=== PATIENT | female | born 1955 | race Caucasian/White ===

== ENCOUNTER → 2023-12-29 | Outpatient (CLI) | payer MEDICARE ==
--- NOTE | 2023-12-29 16:37 | MR ---
EXAMINATION TYPE: MR brain wo/w con DATE OF EXAM: 12/29/2023 4:14 PM CLINICAL INDICATION:Female, 68 years old with history of I63.9 CEREBRAL INFARCTION, UNSPECIFIED, [facility] kady for stroke. COMPARISON: None TECHNIQUE: Multi planar, multi sequence imaging was performed through the brain including: T1, T2, In version recovery, susceptibility weighted imaging and gradient echo imaging and Diffusion weighted im aging. The patient was then given intravenous contrast and multi planar, T1 fat-saturation images wer e obtained. IV Contrast: 9 cc Gadavist FINDINGS: Restricted diffusion within the left is a ganglion extending into the greco radiata and ne priscilla the centrum semiovale in the left frontal lobe. The rae-white junctions, ventricular system, ba iman cisterns appear unremarkable. Intracranial arterial flow voids are maintained. Midline structur es show no abnormality. Scattered foci of high T2 signal intensity are seen within the periventricula r white matter. Additional remote injury within the gautam slightly left of midline noted. The suscepti bility weighted images do not reveal any evidence for micro-hemorrhage. After administration of gadol inium, no abnormal enhancement is seen. The bone marrow signal is within normal limits. Paranasal sinuses and mastoid air cells: No significant paranasal sinus disease. Visualized orbits: Orbital contents are intact. IMPRESSION: 1. Acute/subacute CVA involving the left basal ganglia with extension to greco radiata and nearly th e centrum semiovale of the left frontal lobe. 2. Nonspecific white matter changes, likely related to small vessel ischemic disease.
== END | disposition home or self-care (01) ==
LOC: RADMRIMAIN 15:02
PROVIDERS: ATTEND Internal Medicine Geriatric Medicine
DX: G93.89 Other specified disorders of brain (principal); I63.9 Cerebral infarction, unspecified
CPT/HCPCS: 70553; A9585

== ENCOUNTER → 2024-07-08 | Outpatient (CLI) | payer MEDICARE ==
--- NOTE | 2024-07-08 16:21 | BD ---
EXAMINATION TYPE: Axial Bone Density DATE OF EXAM: 07/08/2024 CLINICAL HISTORY: 68 years old Female. ICD-10 CODE: M85.9 DISORDER OF BONE , Additional History: Height: 64.5 Weight: 198.8 FRAX RISK QUESTIONS: Alcohol (3 or more units per day): no Family History (Parent hip fracture): no Glucocorticoids (More than 3mos): no (Ex: prednisone, prednisolone, methylprednisolone, dexamethasone, and hydrocortisone). History of Fracture in Adulthood: no Secondary Osteoporosis: 1. Type 1 Diabetes: no 2. Hyperthyroidism: no 3. Menopause before 45: no 4. Malnutrition: no 5. Chronic liver disease: no Rheumatoid Arthritis: no Current Tobacco Use: no RISK FACTORS HISTORY OF: Hip Fracture (Right/Left): no Spine Fracture: no History of Wrist Fracture: yes When: age 7 Surgery to Spine/Hip(right/left)/Wrist (right/left): no MEDICATIONS: Thyroid Medications: no Osteoporosis Medications: no EXAM MEASUREMENTS: Bone mineral densitometry was performed using the [employer] System. Bone mineral density as measured about the Lumbar spine is: ----- L1-L4(G/cm2): 1.140 T Score Values are as follows: ----- L1: -1.3 ----- L2: -1.6 ----- L3: 0.0 ----- L4: 1.0 ----- L1-L4: -0.3 Z Score Values are as follows: ----- L1: -0.4 ----- L2: -0.8 ----- L3: 0.8 ----- L4: 1.9 ----- L1-L4: 0.5 Baseline Study Bone mineral density about the R hip (g/cm2): 0.826 Bone mineral density about the L hip (g/cm2): 0.9*12 T Score values are as follows: -----R Neck: -1.8 -----L Neck: -1.7 -----R Total: -1.4 -----L Total: -0.8 Z Score values are as follows: -----R Neck: -0.8 -----L Neck: -0.6 -----R Total: -0.7 -----L Total: 0.0 baseline study FRAX%s: The graph provided illustrates a 10.2% chance for a major osteoporotic fx and a 1.5% chance f or the hips probability for fx in 10 years time. IMPRESSION: Osteopenia (T Score between -2.5 and -1). There is slightly increased risk of fracture and the patient may be considered for treatment. Re-Screen 2-5 years. NOTE: T-SCORE=SD OF THE YOUNG ADULT MEAN. [facility], , 07/08/2024 4:19 PM
== END | disposition home or self-care (01) ==
LOC: RADBDWWP 10:38
PROVIDERS: ATTEND Internal Medicine Hematology & Oncology
DX: M85.9 Disorder of bone density and structure, unspecified (principal); M85.89 Other specified disorders of bone density and structure, multiple sites
CPT/HCPCS: 77080